=== PATIENT | female | born 1970 | race African-American/Black ===

== ENCOUNTER 2021-07-06 06:14 | Day surgery (SDC) | payer BC ==
[2021-06-29 14:24] VITALS: BMI 43.9
[2021-07-06] MEDS ORDERED: fentaNYL CITRATE 250 MCG/5 ML VIAL ONE ×2 (07:23→08:45)
[2021-07-06] MEDS ORDERED: ROCURONIUM BROMIDE 50 MG/5 ML SYRINGE ONE ×2 (07:24→09:33)
[2021-07-06] MEDS ORDERED: PROPOFOL 20 ML ONE ×2 (07:24)
[2021-07-06] MEDS ORDERED: MIDAZOLAM HCL 2 MG/2 ML SINGLE DOSE VIAL ONE ×2 (07:24)
[2021-07-06] MEDS ORDERED: BUPIVACAINE HCL/PF 0.25% (2.5MG/ML) 10 ML VIAL ONE (08:01)
[2021-07-06] MEDS ORDERED: HYDROmorphone HCL/PF 1 MG/ML VIAL ONE (08:52)
[2021-07-06] MEDS ORDERED: DEXAMETHASONE SOD PHOSPHATE 4 MG/1 ML VIAL ONE (09:18)
[2021-07-06] MEDS ORDERED: LIDOCAINE HCL/PF 2% SDV 5ML VIAL ONE (09:18)
[2021-07-06] MEDS ORDERED: ONDANSETRON 4 MG/2 ML VIAL ONE ×2 (09:18→12:50)
[2021-07-06] MEDS ORDERED: NEOSTIGMINE METHYLSULFATE 0.5 MG/1 ML - 10 ML MDV ONE (09:18)
[2021-07-06] MEDS ORDERED: ceFAZolin SODIUM 1 GM VIAL ONE (09:18)
[2021-07-06] MEDS ORDERED: GLYCOPYRROLATE 0.2 MG/1 ML VIAL ONE (09:18)
[2021-07-06] MEDS ORDERED: KETOROLAC TROMETHAMINE 30 MG/1 ML VIAL ONE (09:18)
[2021-07-06] MEDS ORDERED: LABETALOL HCL 5 MG/1 ML (100MG/20 ML VIAL) ONE (09:36)
[2021-07-06] MEDS ORDERED: ONDANSETRON 4 MG/2 ML VIAL IVPUSH PRN ×2 (11:02→11:18)
[2021-07-06] MEDS ORDERED: oxyCODONE HCL 5 MG TABLET PO PRN ×2 (11:02→11:18)
[2021-07-06] MEDS ORDERED: FAMOTIDINE 20 MG/50 ML IVPB 20 MG/50 ML MG IVPB SCH (11:15)
[2021-07-06] MEDS ORDERED: SODIUM CHLORIDE 1,000 ML IV SCH (11:15)
[2021-07-06] MEDS ORDERED: FAMOTIDINE 20 MG PREMIXED IVPB IVPB ONE (11:20)
[2021-07-06] MEDS ORDERED: FAMOTIDINE 20 MG/50 ML IVPB 20 MG/50 ML MG IVPB ONE (11:25)
[2021-07-06] MEDS ORDERED: LACTATED RINGERS SOLUTION 1,000 ML IV SCH (11:30)
[2021-07-06] MEDS ORDERED: ACETAMINOPHEN 1000 MG/100 ML VIAL IVPB ONE (12:00)
[2021-07-06] MEDS ORDERED: ENOXAPARIN NA (PORCINE) 40 MG/0.4 ML DISP.SYRIN SQ ONE ×2 (12:00→12:18)
[2021-07-06 12:08] LABS: HEMATOCRIT 41.8 % (32.4-45.2); HEMOGLOBIN 14.1 GM/dl (10.7-15.3); MCH 30.3 pg (25.7-33.7); MCHC 33.9 g/dl (32.0-36.0); MEAN CELL VOLUME 89.5 fl (80-96); MEAN PLT VOLUME 8.8 fl (7.5-11.1); PLATELET COUNT 187 10^3/uL (134-434); RBC 4.67 M/mm3 (3.60-5.2); RDW 14.2 % (11.6-15.6); WHITE BLOOD COUNT 10.7 K/mm3 (4.0-10.8)
[2021-07-06 12:19] LABS: CALCIUM 8.7 mg/dl (8.5-10); CREATININE 1.2 mg/dl (0.55-1.3)
[2021-07-06 13:40] VITALS: BP 128/76; PULSE 72; TEMP 97.8
== END 2021-07-06 13:40 | disposition home or self-care (01) ==
LOC: FASU 06:14
PROVIDERS: ATTEND Surgery
PROC: 0FB24ZX Excision of Left Lobe Liver, Percutaneous Endoscopic Approach, Diagnostic (ICD-10-PCS; 2021-07-06)
PROC: 0DV64CZ Restriction of Stomach with Extraluminal Device, Percutaneous Endoscopic Approach (ICD-10-PCS; principal; 2021-07-06 08:57)
DX: E66.01 Morbid (severe) obesity due to excess calories (principal); Z68.41 Body mass index [BMI] 40.0-44.9, adult; I10 Essential (primary) hypertension; R16.0 Hepatomegaly, not elsewhere classified
CPT/HCPCS: 43770; 49321; C1889; 36415; 74240-TC-FY; 80048; 85027; 88305-TC; 88312-TC; 88313-TC; 94760; J0131